=== PATIENT | female | born 1975 | race Hispanic/Latino ===

== ENCOUNTER → 2017-07-04 | Emergency (ER) | payer OTHER ==
[~2017-07-04] VITALS: Ht 160 cm; Wt 48.1 kg
[~2017-07-04] MED LIST: FLAX SEED OIL1000 MG PO; K-TAB ER20 MEQ PO; LACTULOSE10 GM/15 M PO; LEVOTHYROXINE112 MCG PO; POTASSIUM CHLO20 ME1 PO; VITAMIN B COMP1 EACH PO
== END ==
LOC: ED 18:06
DX: K72.90 Hepatic failure, unspecified without coma (principal); E87.6 Hypokalemia; Z79.899 Other long term (current) drug therapy
CPT/HCPCS: 76705; 80053; 81001; 82140; 82150; 83690; 84703; 85025; 85610; 85730; 96361; 96374; 96375; 99284; G0480; J2060; J2405; J7030